=== PATIENT | male | born 1985 | race Caucasian/White ===

== ENCOUNTER 2017-05-22 13:54 | Emergency (ER) | payer BC ==
[~2017-05-22] VITALS: Ht 172.7 cm; Wt 82.0 kg
[2017-05-22] MEDS ORDERED: LIDOCAINE HCL 1% 20ML VIAL (Pyxis) INJ INFIL ONE (15:00)
[2017-05-22] MEDS ORDERED: TETANUS, DIPHTHERIA, PERTUSSIS VAC/PF 0.5ML (>7YR OLD) IM ONE (15:45)
[2017-05-22 18:11] VITALS: BP 122/75
== END 2017-05-22 18:19 | disposition home or self-care (01) ==
LOC: ER 15:15
DX: S61.012A Laceration without foreign body of left thumb without damage to nail, initial encounter (principal); S61.519A Laceration without foreign body of unspecified wrist, initial encounter; Z23 Encounter for immunization; W31.89XA Contact with other specified machinery, initial encounter; Y93.89 Activity, other specified; Y92.69 Other specified industrial and construction area as the place of occurrence of the external cause
CPT/HCPCS: 12001; 73130; 90471; 90715; 99284; A4217; J3490; X7700; Z7610